=== PATIENT | female | born 1950 | race Caucasian/White ===

== ENCOUNTER 2017-03-19 14:18 | Emergency (ER) | payer MEDICARE ==
[2017-03-19 14:30] VITALS: BMI 25.9
[2017-03-19 14:39] VITALS: BP 188/67; PULSE 76; RESP 18; TEMP 97.7
--- NOTE | 2017-03-19 15:42 | ED PDOC ---
Arrival/HPI - General Chief Complaint: Lower Extremity Problem/Injury Time Seen by Provider: 03/19/17 15:13 Historian: Patient - History of Present Illness Narrative History of Present Illness (Text): 03/19/17 15:40 66yr old female presents today with right knee. Status post fall 2 days ago. Patient states she was walking and tripped and fell landing on the right knee. Patient states the knee was not hurting as bad when the fall happened but states over the past 2 days the pain has worsened. Patient states she spoke with her doctor and he advised coming to the emergency room to get x-rays of the knee. Patient denies numbness weakness or tingling in the extremity. She is complaining of pain with flexion and extension of the knee as well with ambulation. Patient refusing any medications in the emergency room for pain. Patient states she did take Motrin earlier today. Time/Duration: Other (2 days ago) Past Medical History - Provider Review Nursing Documentation Reviewed: Yes - Travel History Have you recently traveled outside [place] w/in the past 3 mons?: No - Infectious Disease Hx of Infectious Diseases: None - Tetanus Immunization Tetanus Immunization: Up to Date - Endocrine/Metabolic Hx Diabetes Mellitus Type 2: Yes - Psychiatric Hx Substance Use: No - Surgical History Hx Section: Yes (x2) Other/Comment: L breast cyst - Anesthesia Hx Anesthesia: Yes Hx Anesthesia Reactions: No Hx Malignant Hyperthermia: No Family/Social History - Physician Review Nursing Documentation Reviewed: Yes Family/Social History: Unknown Family HX Smoking Status: Never Smoked Hx Alcohol Use: No Hx Substance Use: No Allergies/Home Meds Allergies/Adverse Reactions: Allergies Penicillins Allergy (Verified 03/19/17 14:34) RASH tramadol Allergy (Verified 03/19/17 14:34) NAUSEA Home Medications: Home Meds Medication Instructions Recorded Confirmed Atorvastatin [Lipitor] 1 tab PO HS 03/19/17 03/19/17 Ramipril [Altace] 1 tab PO DAILY 03/19/17 03/19/17 metFORMIN [glucOPHAGE] 1 tab PO DAILY 03/19/17 03/19/17 Review of Systems - Review of Systems Constitutional: absent: Fatigue, Fevers Respiratory: absent: SOB, Cough Cardiovascular: absent: Chest Pain, Palpitations Gastrointestinal: absent: Abdominal Pain, Diarrhea, Nausea, Vomiting Genitourinary Female: absent: Dysuria Musculoskeletal: Arthralgias (right knee pain). absent: Back Pain, Neck Pain Skin: Rash (abrasion, right knee). absent: Pruritis Neurological: absent: Headache, Dizziness Psychiatric: absent: Anxiety, Depression Physical Exam Vital Signs Reviewed: Yes Vital Signs Temp Pulse Resp BP Pulse Ox 03/19/17 14:39 97.7 F 76 18 188/67 H 98 Temperature: Afebrile Blood Pressure: Hypertensive Pulse: Regular Respiratory Rate: Normal Appearance: Positive for: Well-Appearing, Non-Toxic, Comfortable Pain Distress: None Mental Status: Positive for: Alert and Oriented X 3 - Systems Exam Head: Present: Atraumatic Mouth: Present: Moist Mucous Membranes Respiratory/Chest: Present: Clear to Auscultation Cardiovascular: Present: Regular Rate and Rhythm Back: Present: Normal Inspection Upper Extremity: Present: Normal Inspection Lower Extremity: Present: NORMAL PULSES, Normal ROM, Tenderness (Right knee; + ttp over anterior aspect of knee; full rom of knee with pain; no erythema; minimal edema. no ecchymosis; + superficial abrasion noted to anterior aspect without surrounding erythema; no warmth. ), Swelling, Neurovascularly Intact, Capillary Refill < 2 s. No: CALF TENDERNESS, Erythema, Deformity Neurological: Present: GCS=15, Speech Normal Skin: Present: Warm, Dry, Rashes (abrasion to right anterior knee; no erythema; no purulent discharge. ) Psychiatric: Present: Alert, Oriented x 3 Medical Decision Making ED Course and Treatment: 03/19/17 15:59 Patient nontoxic well-appearing in no distress with stable vital signs X-rays of the knee: FINDINGS: BONES: Normal. No fracture. JOINTS: Mild degenerative changes in the patellofemoral joint JOINT EFFUSION: None. OTHER FINDINGS: None. IMPRESSION: No acute findings pt refused mediations for pain; pt states her tetanus is uptodate. Patient placed in knee immobilizer. pt state she has a cane at home. pt was advised to use cane for ambulation. I discussed all results with patient advised to followup with the orthopedist for the next 2 days. Return if symptoms worsen persist or new symptoms develop i advised the patient that although the xrays show no fracture; there is still a possibility for ligamentous or tendon injury the patient must see the orthopedist for further evaluation. Patient verbalizes understanding of discharge instructions and need for immediate followup. Impression: knee pain Motrin every 6 hours as needed for pain Keep wound clean and dry; apply bacitracin twice daily Rest, ice, compression, elevation Use cane for ambulation Followup with the orthopedist within the next 2 days Followup with primary care physician within the next 2 days Return if symptoms worsen persist or if new symptoms develop: high fevers, increasing pain, redness, swelling or if any other concerning symptoms develop. 03/19/17 16:02 - RAD Interpretation Radiology Orders: 03/19/17 15:13 KNEE W PATELLA RIGHT 3 VIEW [RAD] Stat Disposition/Present on Arrival - Present on Arrival Any Indicators Present on Arrival: No History of DVT/PE: No History of Uncontrolled Diabetes: No Urinary Catheter: No History of Decub. Ulcer: No History Surgical Site Infection Following: None - Disposition Have Diagnosis and Disposition been Completed?: Yes Diagnosis: Knee pain, Abrasion, knee Disposition: HOME/ ROUTINE Disposition Time: 15:38 Patient Plan: Discharge Condition: GOOD Discharge Instructions (ExitCare): Knee Pain (ED), Abrasion (ED) Additional Instructions: Motrin every 6 hours as needed for pain Keep wound clean and dry; apply bacitracin twice daily Rest, ice, compression, elevation Use cane for ambulation Followup with the orthopedist within the next 2 days Followup with primary care physician within the next 2 days Return if symptoms worsen persist or if new symptoms develop: high fevers, increasing pain, redness, swelling or if any other concerning symptoms develop. Referrals: Terry Almanzar MD [Primary Care Provider] - Follow up with primary Vega Muller MD [Staff Provider] - Follow up with primary Forms: [employer] ([place]), WORK NOTE
--- NOTE | 2017-03-19 15:53 | RAD ---
PROCEDURE: Right Knee Radiographs. HISTORY: knee pain COMPARISON: None. FINDINGS: BONES: Normal. No fracture. JOINTS: Mild degenerative changes in the patellofemoral joint JOINT EFFUSION: None. OTHER FINDINGS: None. IMPRESSION: No acute findings
[2017-03-19 16:31] VITALS: O2SAT 99
== END 2017-03-19 16:31 | disposition home or self-care (01) ==
LOC: ED 14:18
DX: M25.561 Pain in right knee (principal); S80.211A Abrasion, right knee, initial encounter; W01.0XXA Fall on same level from slipping, tripping and stumbling without subsequent striking against object, initial encounter; Y93.01 Activity, walking, marching and hiking